=== PATIENT | female | born 1970 | race Caucasian/White ===

== ENCOUNTER 2023-12-31 06:59 | Outpatient (OUT) | payer OTHER, SELFPAY ==
--- NOTE | 2023-12-31 07:02 | MM_ITS ---
Patient Name: ROSHAN GIBSON MR#: [id number] : 1970 Exam Date: 12/31/2023 Ordering Doctor: STEVEN BLACK . RADIOLOGY REPORT PROCEDURE: MM TOMOSYNTHESIS SCREENING BI COMPARISON: MG MAMM SCREEN 3D [place] CAD, 12/20/2021. MG MAMM SCREEN 3D [place] CAD, 12/23/2022. INDICATIONS: Screening Calculator Name NCI Breast Cancer Risk Assessment Tool 5 Year Breast Cancer Risk 1.30% Lifetime Breast Cancer Risk 10.30% Personal Breast Cancer No Personal Ovarian Cancer No Treatments None Family Cancers None LOCATION: [facility] BREAST COMPOSITION: The breasts are heterogeneously dense,which may obscure small masses. FINDINGS: DIAGNOSTIC CATEGORY 1--NEGATIVE. NO CHANGE FROM COMPARISON ASSESSMENT. Scattered benign-appearing lymph nodes are present. RIGHT BREAST: No significant suspicious finding. LEFT BREAST: No significant suspicious finding. RECOMMENDATIONS: ROUTINE MAMMOGRAM AND CLINICAL EVALUATION IN 12 MONTHS. PLEASE NOTE: A NORMAL MAMMOGRAM DOES NOT EXCLUDE THE POSSIBILITY OF BREAST CANCER. A CLINICALLY SUSPICIOUS PALPABLE LUMP SHOULD BE BIOPSIED. Dictated by: Kiran Eng MD on 12/31/2023 at 08:46 Approved by: Kiran Eng MD on 12/31/2023 at 08:47
== END 2023-12-31 07:00 | disposition home or self-care (01) ==
LOC: MAMMO 07:00
PROVIDERS: PCP Nurse Practitioner; Visit Provider Nurse Practitioner
DX: Z12.31 Encounter for screening mammogram for malignant neoplasm of breast (principal)
CPT/HCPCS: 77063; 77067